=== PATIENT | male | born 1965 | race Caucasian/White ===

== ENCOUNTER 2017-06-23 09:59 | Day surgery (SDC) | payer OTHER ==
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
[2017-06-20 10:55] VITALS: BMI 34.4
[2017-06-23] MEDS ORDERED: CEFAZOLIN/Water 2 GM/20 ML SYRINGE ONE (11:01)
[2017-06-23] MEDS ORDERED: Midazolam HCl 2 mg/2 ml Vial ONE (11:06)
[2017-06-23] MEDS ORDERED: Fentanyl 100 MCG/2 ML VIAL ONE ×5 (11:06→17:01)
[2017-06-23] MEDS ORDERED: Thrombin 5000 UNITS/5 ML VIAL ONE (11:24)
[2017-06-23] MEDS ORDERED: Sodium Chloride 0.9% 10 ML ONE (11:24)
[2017-06-23] MEDS ORDERED: Ondansetron HCl/PF 4 MG/2 ML Vial ONE (11:58)
[2017-06-23] MEDS ORDERED: Glycopyrrolate 0.2 MG/ML 5 ML SYRINGE ONE (11:58)
[2017-06-23] MEDS ORDERED: Ketorolac Tromethamine 30 MG/ML VIAL ONE (11:58)
[2017-06-23] MEDS ORDERED: Propofol 200 MG/20 ML VIAL ONE (11:58)
[2017-06-23] MEDS ORDERED: Dexamethasone 20 MG/5 ML VIAL ONE (11:58)
[2017-06-23] MEDS ORDERED: Lidocaine 2% MPF 10 ML AMP (For Epidural Use) ONE (11:58)
[2017-06-23] MEDS ORDERED: Rocuronium Bromide 50 MG/5 ML VIAL ONE (15:27)
[2017-06-23] MEDS ORDERED: Acetaminophen 325 MG TAB PO PRN (16:38)
[2017-06-23] MEDS ORDERED: Acetaminophen/Codeine 30-300mg Tablet PO PRN ×2 (16:38)
[2017-06-23] MEDS ORDERED: Acetaminophen 650 MG Suppository PR PRN (16:38)
[2017-06-23] MEDS ORDERED: Prochlorperazine 10 MG/2 ML VIAL IM PRN (16:38)
[2017-06-23] MEDS ORDERED: diphenhydrAMINE 25 MG CAP PO PRN (16:38)
[2017-06-23] MEDS ORDERED: Promethazine HCl 12.5 MG SUPP PR PRN (16:38)
[2017-06-23] MEDS ORDERED: Fleet Enema 133 ML BOT PR PRN (16:38)
[2017-06-23] MEDS ORDERED: diphenhydrAMINE 50 MG/ML VIAL IVP PRN (16:38)
[2017-06-23] MEDS ORDERED: Ondansetron HCl/PF 4 MG/2 ML Vial IVP PRN (16:38)
[2017-06-23] MEDS ORDERED: HYDROcodone/Acetaminophen 10/325 mg Tablet PO PRN ×2 (16:38)
[2017-06-23] MEDS ORDERED: tiZANidine HCl 4 MG TAB PO PRN (16:38)
[2017-06-23] MEDS ORDERED: Morphine 10 MG/ML VIAL SLOW IVP PRN ×2 (16:38)
[2017-06-23] MEDS ORDERED: traMADol HCl 50 MG TAB PO PRN ×2 (16:38)
[2017-06-23] MEDS ORDERED: Promethazine 25 MG TAB PO PRN (16:38)
[2017-06-23] MEDS ORDERED: Cyclobenzaprine 10 MG TAB PO PRN (16:38)
[2017-06-23] MEDS ORDERED: Promethazine HCl 25 MG/ML VIAL IM PRN (16:38)
[2017-06-23] MEDS ORDERED: Milk Of Magnesia 30 ML UDCUP PO PRN (16:38)
[2017-06-23] MEDS ORDERED: Zolpidem Tartrate 5 MG TAB PO PRN (16:38)
[2017-06-23] MEDS ORDERED: Bisacodyl 10 MG SUPP PR PRN (16:38)
[2017-06-23] MEDS ORDERED: Mag-Al 1200 mg/1200 mg/30 ML UDCUP PO PRN (16:38)
[2017-06-23] MEDS ORDERED: HYDROcodone/Acetaminophen 7.5/325 mg Tablet PO PRN ×2 (16:38)
[2017-06-23] MEDS ORDERED: Scopolamine 1.5 mg/72 hour Patch TD SCH (16:45)
[2017-06-23] MEDS ORDERED: Sodium Chloride 0.9% 1,000 ML IV SCH (16:45)
[2017-06-23] MEDS ORDERED: Cyclobenzaprine 10 MG TAB ONE (17:24)
[2017-06-23] MEDS ORDERED: CEFAZOLIN/Water 2 GM/20 ML SYRINGE SLOW IVP SCH (19:00)
[2017-06-23] MEDS ORDERED: Acetaminophen/Codeine 30-300mg Tablet ONE (19:12)
--- NOTE | 2017-06-23 20:04 | OP ---
DATE OF PROCEDURE: 06/23/2017 SURGEON: Mikey Stephens M.D. SUPERVISOR [employer]ATING [employer]SEM[employer]Y: None. PREOPERATIVE INDICATION: Prevent neurological deterioration. 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 POSTOPERATIVE DIAGNOSES: Intravertebral disk disease with early myelopathy, C3-C4 and C4-5, cervica l radiculopathy. OPERATIVE PROCEDURE: Anterior cervical diskectomy C3-C4 and C5-C6, placement of anterior cervical t otal disk arthroplasty device at C4-C5 and C5-C6, operating microscope. PREOPERATIVE MEDICATIONS: Ancef 2 grams IV. DRAIN NUMBER: Zero. DRAIN TYPE: None. OPERATIVE DICTATION: The patient was brought to the operating room. General endotracheal anesthesi a was induced. The patient was positioned supine on the operating table and his head supported by g el-filled donut shaped head rest. A lateral fluoro radiograph was used to plan our incision. The r ight side of the neck was sterilely prepped and draped. We opened the neck with a 10 blade knife an d controlled bleeding with bipolar cautery. We dissected sharply to the platysma and cut this muscl e in line with our incision. We continued our dissection medial to the sternocleidomastoid, lateral to the trachea and esophagus, all the way down to the prevertebral space. We put a marker at C4-C5 and took a lateral fluoro radiograph to confirm the levels upon which we were operating. We then e levated the longus colli muscles off the anterior surface of C4, C5, and C6, and placed self-retaini ng retractors beneath these muscles. We placed distraction pins at C4 and C5 and distracted across the intervening interspace. We incised the interspace with a 15 blade knife and removed disk conten ts using curettes and rongeurs. The operating microscope was brought into the field. Under microscopic magnification using microsurgical techniques, we removed the remainder of the inte rvertebral disk. We removed the posterior longitudinal ligament. We decompressed the dura from one side all the way to the other by removing posterior osteophytes and performing foraminotomies. We then prepared the endplates for accepting the arthroplasty device. We flattened the superior endpla te of C5 and made sure there was a contributing in the inferior endplate of C4. We measured the int erspace with trials and found the 19 x 15 x 5 mm trial to be the appropriate size for the interspace . We brought the arthroplasty device into the field and under careful radiographic guidance, we adv anced this into the interspace to the appropriate depth. We then compressed across the interspace t o seat the device into the endplates and we removed the application mechanism. We removed our distr action pin from C4 and placed it at C6. We distracted across the C5-C6 interspace. In a similar fa shion to what we did at C4-C5, we removed disk contents using curettes and rongeurs. Microsurgical techniques were used to remove the remainder of the intervertebral disk and the posterior longitudin al ligament. A small amount ligament was densely adherent to the dura and a tiny bit of calcified d isk there as well just to the left of midline just above the superior endplate of C6. In spite of m ultiple attempts for sharp dissection, a small remnant had to be left on the dura, but it was freely floating and there was no compression. Both neural foramina were widely decompressed by removing o steophytes and the dura across the entire interspace was widely decompressed. The decompression was significant enough to visualize the spinal cord which was moving with each heartbeat, indicating th ere was no trapping of the cord. We prepared the endplates by flattening the superior endplate of C 6 and ensuring there was a concavity in the inferior endplates of C5. We used trial devices and fou nd that the 19 x 15 x 5 mm device was the appropriate size for the interspace. That arthroplasty de vice was brought into the field and advanced into the interspaces under radiographic guidance to the appropriate depth. We disengaged the application mechanism. AP and lateral fluoro radiographs con firmed adequate positioning of both the arthroplasty devices. We irrigated copiously with bacitraci n irrigation. We took the operating microscope out of the field. We closed the wound in anatomic l ortiz and we applied a sterile dressing. This was a clean case and no contamination.
== END 2017-06-23 19:45 | disposition home or self-care (01) ==
LOC: SDC 09:59
PROVIDERS: ATTEND Neurological Surgery
PROC: 0RG24A0 Fusion of 2 or more Cervical Vertebral Joints with Interbody Fusion Device, Anterior Approach, Anterior Column, Percutaneous Endoscopic Approach (ICD-10-PCS; principal; 2017-06-23)
DX: M50.222 Other cervical disc displacement at C5-C6 level (principal); M54.12 Radiculopathy, cervical region
CPT/HCPCS: 76001; 96374; A4216; C1776; J1100; J1885; J2001; J2250; J2405; J2704; J3010; J3490

== ENCOUNTER 2017-07-25 10:23 | Outpatient (CLI) | payer OTHER ==
--- NOTE | 2017-07-25 13:06 | RAD ---
FOUR VIEWS OF THE CERVICAL SPINE PERFORMED 07/25/17. COMPARISON: 03/30/17. HISTORY: Evaluate neck following surgery, radiculopathy. FINDINGS: There is a metallic disk prosthesis at C4-5 and C5-6, new. At C3-4, there is disk space narrowing wi th anterior and posterior osteophyte formation. At C6-7, there is disk space narrowing, degenerative end plate change, and anterior osteophyte format ion as well. No prevertebral soft tissue swelling. No anterolisthesis or retrolisthesis. No eviden ce of hardware failure. Open-mouth odontoid view demonstrates normal-appearing dens in C1-2 articula tion. IMPRESSION: Intervertebral disk devices as above. Cervical spine degenerative change noted. POS: JORDIN
== END 2017-07-25 10:24 | disposition home or self-care (01) ==
LOC: TBSIIMAG 10:23
PROVIDERS: ATTEND Neurological Surgery
DX: M47.12 Other spondylosis with myelopathy, cervical region (principal); M47.22 Other spondylosis with radiculopathy, cervical region
CPT/HCPCS: 72040

== ENCOUNTER 2017-09-20 09:36 | Outpatient (CLI) | payer OTHER ==
--- NOTE | 2017-09-20 10:47 | RAD ---
SIX VIEWS OF THE CERVICAL SPINE: DATE: 09/20/17. COMPARISON: None. HISTORY: Cervical radiculopathy, migraines, neck pain. FINDINGS: Frontal, open mouth odontoid, swimmers lateral, neutral lateral, flexion lateral, and extension later al radiographs provided. Open mouth odontoid view demonstrates a normal dens in C1-2 articulation. Intervertebral disk prosth eses are present at C4-5 and C5-6. There is disk space narrowing with posterior and anterior osteoph yte formation at C3-4 and C6-7. On the neutral lateral imaging, there is no significant anterolisthesis or retrolisthesis seen. No anterolisthesis or retrolisthesis is noted on the flexion or extension lateral views. The cervico thoracic junction appears intact on the swimmers lateral view. No prevertebral soft tissue swelling noted. IMPRESSION: Postoperative and degenerative changes noted within the cervical spine as detailed above. POS: JORDIN
== END 2017-09-20 09:37 | disposition home or self-care (01) ==
LOC: TBSIIMAG 09:36
PROVIDERS: ATTEND Neurological Surgery
DX: M47.22 Other spondylosis with radiculopathy, cervical region (principal); Z98.890 Other specified postprocedural states
CPT/HCPCS: 72050

== ENCOUNTER 2024-02-09 13:49 | Emergency (ER) | payer BC ==
[2024-02-09 14:33] LABS: #Basophils 0.06 10x3/uL (0.0-0.2); %Basophils 0.6 % (0.0-1.0); %Eosinophils 1.9 % (0.0-10.0); %Lymphocytes 22.3 % (21.0-51.0); %Monocytes 8.4 % (0.0-10.0); %Neutrophils 66.1 % (42.0-75.0); Hematocrit 44.6 % (42.0-52.0); Mean Corpuscular HGB CONC 33.6 g/dL (32.0-36.0); Mean Corpuscular Hemoglobin 27.7 pg (27.0-31.0); Mean Corpuscular Volume 82.4 fL (78.0-98.0); Mean Platelet Volume 9.4 fL (7.4-10.4); Platelet Count 260 10x3/uL (130-400); RBC Distribution Width 13.3 % (11.5-14.5); Red Blood Cell (RBC) Count 5.41 mill/uL (4.70-6.10)
[2024-02-09 15:05] LABS: ALT (SGPT) 34 U/L (8-55); AST (SGOT) 19 U/L (5-34); Albumin 3.5 g/dL (3.5-5.0); Alkaline Phosphatase 74 U/L (40-110); Anion Gap 15 mmol/L (10-20); BUN (Urea Nitrogen) 14 mg/dL (8.4-25.7); Bilirubin, Total 0.4 mg/dL (0.2-1.2); Calc. Creatinine Clearance 0 mL/min (70-130); Carbon Dioxide 23 mmol/L (22-29); Chloride 103 mmol/L (98-107); Estimated GFR 85; Globulin 3.4 g/dL (2.4-3.5); Glucose 98 mg/dL (70-105); Potassium 3.9 mmol/L (3.5-5.1); Protein, Total 6.9 g/dL (6.0-8.3); Sodium 137 mmol/L (136-145)
[2024-02-09 15:27] LABS: Magnesium 1.9 mg/dL (1.6-2.6)
[2024-02-09 15:54] LABS: Troponin I Less than 0.010 ng/mL (< 0.028)
== END 2024-02-09 16:57 | disposition home or self-care (01) ==
LOC: ERS 13:49
DX: R00.2 Palpitations (principal); I49.8 Other specified cardiac arrhythmias; J45.909 Unspecified asthma, uncomplicated
CPT/HCPCS: 71045; 80053; 83735; 83880; 84443; 84484; 85025; 93005; 94760